=== PATIENT | female | born 1985 | race African-American/Black ===

== ENCOUNTER 2019-06-19 14:26 | Emergency (ER) | payer SELFPAY ==
[~2019-06-19] VITALS: Ht 167.6 cm; Wt 89.8 kg
[2019-06-19] MEDS ORDERED: TETANUS/DIPHTHERIA TOX ADULT 0.5 ML SYR IM STA (14:53)
[2019-06-19] MEDS ORDERED: TETANUS/DIPHTHERIA TOX ADULT 0.5 ML SYR ONE (15:12)
== END 2019-06-19 15:25 | disposition home or self-care (01) ==
LOC: FSED 14:26
DX: S50.11XA Contusion of right forearm, initial encounter (principal); Y04.0XXA Assault by unarmed brawl or fight, initial encounter; Y92.008 Other place in unspecified non-institutional (private) residence as the place of occurrence of the external cause
CPT/HCPCS: 90714; 99282